=== PATIENT | female | born 1960 | race Native Hawaiian/Other Pacific Islander ===

== ENCOUNTER 2019-03-06 09:32 | Outpatient (CLI) | payer OTHER | END 2019-03-06 20:15 | disposition home or self-care (01) | LOC: LAB 09:32 | DX: R19.7 Diarrhea, unspecified (principal); R50.9 Fever, unspecified | CPT/HCPCS: 82272; 83630; 87015; 87045; 87324; 87328; 87329; 87449; 87899 ==

== ENCOUNTER 2019-04-05 09:05 | Outpatient (CLI) | payer OTHER | END 2019-04-05 09:27 | disposition short-term general hospital (02) | LOC: AMB 09:05 | DX: R06.02 Shortness of breath (principal); M25.512 Pain in left shoulder; R07.89 Other chest pain | CPT/HCPCS: A0425; A0427 ==

== ENCOUNTER 2022-05-28 10:26 | Outpatient (CLI) | payer OTHER | END 2022-05-28 20:52 | disposition home or self-care (01) | LOC: RAD 10:26 | PROVIDERS: ATTEND Internal Medicine | DX: Z78.0 Asymptomatic menopausal state (principal); Z13.820 Encounter for screening for osteoporosis ==